=== PATIENT | male | born 1960 | race Caucasian/White ===

== ENCOUNTER 2022-01-31 16:10 | Emergency (ER) | payer BC ==
[2022-01-31] MEDS ORDERED: Diltiazem 25 MG/5 ML SDV IVPUSH ONE (16:54)
[2022-01-31 17:17] LABS: BLOOD UREA NITROGEN,BUN 12 mg/dL (7.0-18.0); CARBON DIOXIDE,CO2 30.5 mmol/L (21.0-32.0); CHLORIDE,CL 97 mmol/L (98-107); GLUCOSE RANDOM 128 mg/dL (74-106); POTASSIUM,K 3.9 mmol/L (3.5-5.1); SODIUM,NA 135 mmol/L (136-148)
[2022-01-31] MEDS ORDERED: Sodium Chloride 0.9% 500 ML IV SCH (18:15)
[2022-01-31] MEDS ORDERED: Acetaminophen/oxyCODONE 325-10 MG Tab PO STA (18:27)
[2022-01-31] MEDS: Iopamidol 755 MG/ML 500 ML Multipack Bottle IVPUSH ONE ×2 (18:41→18:42)
[2022-01-31] MEDS ORDERED: Piperacillin/Tazobactam 3.375 GM in Sodium Chloride 0.9% 50 ML IV ONE (20:22)
[2022-01-31] MEDS ORDERED: VANCOmycin 2 GM/400 ML 2 GM in Premix Bag 1 BAG IV ONE (21:00)
[2022-01-31] MEDS ORDERED: Acetaminophen 500 MG Tab PO ONE (21:34)
[2022-02-01] MEDS ORDERED: VANCOmycin 1.5 GM/300 ML 300 ML IV SCH (10:00)
== END 2022-01-31 22:35 ==
LOC: MW.ED 16:10
DX: K86.9 Disease of pancreas, unspecified (principal); D72.829 Elevated white blood cell count, unspecified; Z20.822 Contact with and (suspected) exposure to COVID-19
CPT/HCPCS: 36415; 71275; 80053; 81003; 83605; 84484; 85025; 85610; 85730; 87040; 87635; 93005; 96365; 96375; 99284; A9270; J2543; J3490; J7040; Q9967; 93010; U0002